=== PATIENT | female | born 1960 | race Hispanic/Latino ===

== ENCOUNTER 2017-04-15 15:11 | Outpatient (CLI) | payer MEDICARE, OTHER ==
[2017-04-15 16:08] LABS: Mean Corpuscular HGB CONC 32.9 g/dL (32.0-36.0); Mean Corpuscular Hemoglobin 26.2 pg (27.0-31.0); Mean Corpuscular Volume 79.5 fl (81.0-99.0); Mean Platelet Volume 6.7 fL (7.4-10.4); Platelet Count 328 thou/uL (130-400); RBC Distribution Width 13.4 % (11.5-14.5); White Blood Cell (WBC) Count 7.7 thou/uL (4.8-10.8)
[2017-04-15 16:37] LABS: ALT (SGPT) 21 U/L (8-55); AST (SGOT) 22 U/L (5-34); Albumin 4.2 g/dL (3.5-5.0); Alkaline Phosphatase 136 U/L (40-150); Anion Gap 12 mmol/L (10-20); BUN (Urea Nitrogen) 13 mg/dL (9.8-20.1); Bilirubin, Direct 0.2 mg/dL (0.1-0.3); Bilirubin, Total 0.3 mg/dL (0.2-1.2); Calc. Creatinine Clearance 0 mL/min (70-130); Calcium 9.2 mg/dL (7.8-10.44); Carbon Dioxide 29 mmol/L (22-29); Chloride 103 mmol/L (98-107); Estimated GFR-MDRD Greater than 90; Glucose 94 mg/dL (70-105); Potassium 3.6 mmol/L (3.5-5.1); Protein, Total 8.2 g/dL (6.0-8.3); Sodium 140 mmol/L (136-145)
--- NOTE | 2017-04-16 18:48 | EKG ---
Test Reason : Blood Pressure : / mmHG Vent. Rate : 080 BPM Atrial Rate : 080 BPM P-R Int : 158 ms QRS Dur : 096 ms QT Int : 362 ms P-R-T Axes : 054 063 009 degrees QTc Int : 417 ms Normal sinus rhythm T wave abnormality, consider inferior ischemia T wave abnormality, consider anterior ischemia Abnormal ECG Confirmed by DR. Yvan HIGHTOWER ([id number]) on 04/16/2017 6:48:29 PM Referred By: LUZ Confirmed By:DR. Yvan HIGHTOWER
== END 2017-04-15 15:12 | disposition home or self-care (01) ==
LOC: LABBT 15:11
PROVIDERS: ATTEND Surgery
DX: Z01.818 Encounter for other preprocedural examination (principal); K82.4 Cholesterolosis of gallbladder
CPT/HCPCS: 80048; 80076; 85027; 93005; 93010

== ENCOUNTER 2017-04-22 05:52 | Day surgery (SDC) | payer OTHER ==
[2017-04-15 15:49] VITALS: BMI 36.6
[2017-04-22] MEDS ORDERED: CEFAZOLIN/Water 2 GM/20 ML SYRINGE ONE (06:50)
[2017-04-22] MEDS ORDERED: Fentanyl 250 MCG/5 ML VIAL ONE ×2 (06:54→09:19)
[2017-04-22] MEDS ORDERED: Bupivacaine/Epinephrine 0.25% 30 ML VIAL ONE (06:54)
[2017-04-22] MEDS ORDERED: Midazolam HCl 2 mg/2 ml Vial ONE (07:09)
[2017-04-22] MEDS ORDERED: Iothalamate Meglumine 60% 50 ML VIAL FS ONE (07:32)
[2017-04-22] MEDS ORDERED: Ondansetron HCl/PF 4 MG/2 ML Vial IVP PRN (09:15)
[2017-04-22] MEDS ORDERED: HYDROmorphone 2 MG/ML VIAL SLOW IVP PRN (09:15)
[2017-04-22] MEDS ORDERED: Promethazine HCl 25 MG/ML VIAL IM/IV PRN (09:15)
[2017-04-22] MEDS ORDERED: Non-Formulary Medication 1 EACH PO PRN (09:29)
--- NOTE | 2017-04-22 09:35 | RAD ---
INTRAOPERATIVE CHOLANGIOGRAM: Date: 04/22/17 HISTORY: Laparoscopic cholecystectomy. FINDINGS/IMPRESSION: Single spot fluoroscopic intraoperative images of the right upper quadrant during an intraoperative c holangiogram demonstrate opacification of the distal portion of the common bile duct without defect. There is suboptimal opacification in portions of the hepatic ducts, which cannot be satisfactorily ev aluated. There is contrast in the second portion of the duodenum. Surgical instruments are in the fie ld of view. POS: SELAM
--- NOTE | 2017-04-22 10:44 | OP ---
DATE OF PROCEDURE: 04/22/2017 PREOPERATIVE DIAGNOSIS: Chronic cholecystitis. POSTOPERATIVE DIAGNOSIS: Chronic cholecystitis. PROCEDURE: Laparoscopic cholecystectomy, intraoperative cholangiogram. SURGEON: Dr. Salvatore Taveras ANESTHESIA: General. ESTIMATED BLOOD LOSS: Minimal. COMPLICATIONS: None. SPECIMEN: Gallbladder. FINDINGS: Normal cholangiogram. TECHNIQUE: The patient was taken to the operating room and placed supine on the table. After genera l anesthetic was obtained, the abdomen is prepped and draped in a sterile fashion. Straight incision made above the umbilicus. Cautery was used to dissect down to incised the fascia with cautery. The abdominal cavity was entered bluntly using a Heather clamp. Holding stitch of PDS placed on each side of the fascia. Oliveira trocar was placed. High-flow pneumoperitoneum was obtained. Upper midline 5 mm port, two 5 mm ports were placed under direct visualization. Gallbladder was extracted from the gallbladder fossa. Peritoneum was opened anteriorly and posteriorly. The critical view triangle was seen showing only the cystic duct and cystic artery branching from medial to laterally, no other bra nching structures. A clip was placed on the cystic duct. A small ductotomy was made just proximal t o that. Cholangiocatheter was brought in through a separate stab incision, placed in the cystic duct and cholangiogram was performed which shows good contrast flow into the duodenum, right and left hep atic duct system. There is fusiform dilatation of the mid hepatic duct, but no obvious obstruction. Cholangiocatheter was removed. Two clips were placed proximal on the cystic duct, it was cut using laparoscopic scissors. Cystic artery was taken in the same way. Cautery was then used to dissect th e gallbladder out of the gallbladder fossa. Gallbladder was placed in an Endo catch bag and brought out through the Oliveira. There was no bleeding or bile in the liver bed. Right upper quadrant was ir rigated using sterile solution. All port site were anesthetized with local anesthetic, all ports wer e removed under camera visualization. Pneumoperitoneum was let down. PDS was used to close the fasc ial defect above the umbilicus. All incisions were irrigated and closed using 4-0 Monocryl and Duarte granda. The patient went to recovery in stable condition. All instruments counts, needle counts, lap counts were correct.
[2017-04-22] MEDS ORDERED: Lidocaine 1% PF 5 ML VIAL ONE (14:24)
[2017-04-22] MEDS ORDERED: PROPOFOL 200 MG/20 ML VIAL ONE (14:24)
[2017-04-22] MEDS ORDERED: Dexamethasone 20 MG/5 ML VIAL ONE (14:24)
[2017-04-22] MEDS ORDERED: Glycopyrrolate 0.2 MG/ML 5 ML SYRINGE ONE (14:24)
[2017-04-22] MEDS ORDERED: Ondansetron HCl/PF 4 MG/2 ML Vial ONE (14:24)
[2017-04-22] MEDS ORDERED: Ketorolac Tromethamine 30 MG/ML VIAL ONE (14:24)
[2017-04-22] MEDS ORDERED: PHENYLEPHRINE-NS 100 MCG/ML 10 ML SYRINGE ONE (14:24)
== END 2017-04-22 12:49 | disposition home or self-care (01) ==
LOC: SDC 05:52
PROVIDERS: ATTEND Surgery
PROC: BF0CYZZ Plain Radiography of Hepatobiliary System, All using Other Contrast (ICD-10-PCS; principal; 2017-04-22)
PROC: 0FT44ZZ Resection of Gallbladder, Percutaneous Endoscopic Approach (ICD-10-PCS; principal; 2017-04-22)
DX: K81.1 Chronic cholecystitis (principal); I10 Essential (primary) hypertension; E78.5 Hyperlipidemia, unspecified; M19.90 Unspecified osteoarthritis, unspecified site; E66.9 Obesity, unspecified; Z68.36 Body mass index [BMI] 36.0-36.9, adult; Z79.82 Long term (current) use of aspirin; Z79.899 Other long term (current) drug therapy; Z91.018 Allergy to other foods
CPT/HCPCS: 47532; 88304; 96374; J0131; J1100; J1885; J2001; J2250; J2405; J2704; J3010; Q9961